=== PATIENT | male | born 1965 | race Caucasian/White ===

== ENCOUNTER → 2023-07-15 06:28 | Day surgery (SDC) | payer OTHER, SELFPAY | LOC: GI 06:28 | PROVIDERS: ATTENDING PHYSICIAN Internal Medicine; FAMILY PHYSICIAN Family Medicine | DX: Z12.11 Encounter for screening for malignant neoplasm of colon (principal); K64.9 Unspecified hemorrhoids; K57.30 Diverticulosis of large intestine without perforation or abscess without bleeding; Z86.010 Personal history of colon polyps; D12.2 Benign neoplasm of ascending colon; D12.4 Benign neoplasm of descending colon; K62.0 Anal polyp; K62.89 Other specified diseases of anus and rectum | CPT/HCPCS: 45385; 45380; 88305 ==

== ENCOUNTER → 2024-06-30 11:08 | Outpatient (REF) | payer OTHER, SELFPAY | LOC: RAD 11:08 | PROVIDERS: ATTENDING PHYSICIAN Physician Assistant; FAMILY PHYSICIAN Family Medicine; OTHER PHYSICIAN Ophthalmology | DX: D86.9 Sarcoidosis, unspecified (principal); H20.9 Unspecified iridocyclitis; J84.9 Interstitial pulmonary disease, unspecified; R76.8 Other specified abnormal immunological findings in serum | CPT/HCPCS: 71046 ==

== ENCOUNTER → 2025-04-03 10:52 | Outpatient (REF) | payer OTHER, SELFPAY | LOC: RAD 10:52 | PROVIDERS: ATTENDING PHYSICIAN Specialist Research Data Abstracter/Coder; FAMILY PHYSICIAN Family Medicine; REFERRING PHYSICIAN Otolaryngology | DX: R22.1 Localized swelling, mass and lump, neck (principal) | CPT/HCPCS: 76536 ==